=== PATIENT | female | born 1985 | race Caucasian/White ===

== ENCOUNTER 2022-10-20 13:31 | Emergency (ER) | payer BC, SELFPAY ==
[2022-10-20 13:42] VITALS: BP 123/78; PULSE 89; RESP 20; TEMP 36.8; O2SAT 97; BMI 31.0
[2022-10-20 14:34] LABS: PCR FLU A Negative PCR FLU A (Negative); PCR FLU B Negative PCR FLU B (Negative); PCR RSV Negative PCR RSV (Negative)
[2022-10-20 14:37] LABS: SARS PCR* Negative SARS-CoV-2 (Negative)
--- NOTE | 2022-10-20 15:03 | ED.GENADULT ---
HPI - General Adult General Chief complaint: Cough Stated complaint: Cough Time Seen by Provider: 10/20/22 14:45 Source: patient Mode of arrival: ambulatory Limitations: no limitations History of Present Illness HPI narrative: 37-year-old female presents to the ED with a 2 week history of cough. Twenty-five year smoker with no history of documented COPD or asthma. No fevers. Has been exposed to COVID through family members, though not household contacts. Has not tried any [id number] medications, cough suppressants, inhalers or other similar interventions. Cough is productive of clear sputum, no purulent mucus, no hemoptysis. No fever. No prior history of similar symptoms. Thinks she probably has bronchitis. No severe dyspnea or chest pain. No significant worsening, this was just a convenient time for her to come in for Care on Friday afternoon to the ED. Past medical history she states is benign, no major long-term health problems besides occasional irregular heartbeat, she is not on long-term medication for that. Her only long-term medication is her Mirena IUD. She denies allergies. Socially, she continues to smoke but was receptive to discussion on cessation at my recommendation. ROS is notable for the respiratory symptoms as above only, otherwise denies times 12 systems. Related Data Home Medications Medication Instructions Recorded Confirmed levonorgestrel 21 mcg/24 hours (8 1 device intrauterine ONCE 09/25/22 09/25/22 yrs) 52 mg intrauterine device Previous Rx's Medication Instructions Recorded albuterol sulfate 90 mcg/actuation 2 puff inhalation Q4-6H PRN 10/20/22 aerosol inhaler shortness of breath or wheezing #6.7 grams doxycycline hyclate 100 mg capsule 100 mg PO BID #14 caps 10/20/22 prednisone 20 mg tablet 20 mg PO DAILY #4 tabs 10/20/22 Allergies Allergy/AdvReac Type Severity Reaction Status Date / Time silver nitrate Allergy Mild skin Verified 09/25/22 10:59 irritation [facility] Medical History History of hysterosalpingogram (2012) History of placental abruption (2013) Multigravida of advanced maternal age Perineal laceration involving labia care following vaginal delivery Ventricular premature beats (2018) White classification A2 gestational diabetes mellitus (GDM) Social History Narrative: marital conflict Smoking Status: Current every day smoker (20) Exam Const: Vital Signs, click to edit/add: Vital Signs - 24 hr 10/20/22 13:42 Temperature 98.3 F Pulse Rate [Pulse Oximeter] 89 Respiratory Rate 20 Blood Pressure [Ri ght Upper Arm] 123/78 Pulse Oximetry 97 Oxygen Delivery Me thod Room Air Documenting provider has reviewed patient's vital signs: yes Common normals: no apparent distress General appearance: cooperative and well kempt HENMT: Common normals: normocephalic Head and scalp: normocephalic Mouth: oral and palatal mucosa normal Throat: posterior oropharynx normal Eye: Common normals: conjunctivae normal General eye: normal appearance of both eyes Conjunctiva: conjunctiva(e) normal Neck & C-Spine: Common normals: full ROM and no lymphadenopathy Resp: Common normals: normal respiratory effort and no use of accessory muscles Effort & inspection: able to speak in complete sentences Other: Course bronchial breath sounds with mild bilateral expiratory wheeze in all mccormack. No crackles. Cardio: Common normals: regular rate, regular rhythm, S1 normal heart sound, S2 normal heart sound, no murmurs and peripheral pulses 2+ throughout Rate: regular rate Rhythm: regular rhythm Heart sounds: S1 normal and S2 normal Peripheral pulses: pulses 2+ throughout Extremity: Common normals: normal capillary refill and no pedal edema Psych: Appearance: well kempt Activity/motor behavior: appropriate eye contact Mood and affect: euthymic mood Insight: insight good Judgement: judgment good Skin: Common normals: no rashes or lesions noted General skin exam: no rashes or lesions noted Course Vital Signs Vital signs: Initial Vital Signs Temperature 98.3 F 10/20/22 13:42 Temperature Source Oral 10/20/22 13:42 Pulse Rate 89 10/20/22 13:42 Pulse Rhythm 10/20/22 13:42 Respiratory Rate 20 10/20/22 13:42 Blood Pressure 123/78 10/20/22 13:42 Blood Pressure Mean 93 10/20/22 13:42 Blood Pressure Position Sitting 10/20/22 13:42 Pulse Oximetry 97 10/20/22 13:42 Oxygen Delivery Method 10/20/22 13:42 Vital Signs Temperature 98.3 F 10/20/22 13:42 Pulse Rate 89 10/20/22 13:42 Respiratory Rate 20 10/20/22 13:42 Blood Pressure 123/78 10/20/22 13:42 Pulse Oximetry 97 10/20/22 13:42 Oxygen Delivery Method 10/20/22 13:42 Temperature 98.3 F 10/20/22 13:42 Pulse Rate 89 10/20/22 13:42 Respiratory Rate 20 10/20/22 13:42 Blood Pressure 123/78 10/20/22 13:42 Pulse Oximetry 97 10/20/22 13:42 Oxygen Delivery Method 10/20/22 13:42 Medical Decision Making MDM Narrative Medical decision making narrative: Swabs reviewed, negative. No hypoxia, tachycardia or tachypnea. Chest x-ray not recommended. Exam consistent with bronchitis, in the setting of 625 year smoking history, likely has underlying COPD, treatment recommended. Prednisone 20 mg p.o. x1, doxycycline 100 mg p.o. x1. Discussed follow-up care, smoking cessation and typical course of recovery. Counseled that it will take several weeks for her lungs recover from this episode even with treatment. Alarm symptoms reviewed. All questions answered. Lab Data Lab results reviewed: Yes I reviewed the patient's lab results Labs: Lab Results 10/20/22 Range/Units 13:45 SARS-CoV-2 (PCR) Negative SARS-CoV-2 (Negative) Influenza Type A (PCR) Negative PCR FLU A (Negative) Influenza Type B (PCR) Negative PCR FLU B (Negative) RSV (PCR) Negative PCR RSV (Negative) Discharge Plan Discharge Clinical Impression: COPD exacerbation, Bronchitis Patient Disposition: Home, Self-Care Condition: Stable Instructions: COPD (Chronic Obstructive Pulmonary Disease) (DC) Additional Instructions: As we discussed, your swabs are negative for COVID, influenza and RSV. The reason that your bronchitis is not getting better is because your lungs are damaged from 25 years of smoking. This would be a great time to quit smoking. I do not think that your lungs will heal from this episode without medications. Typically, if you have not started to improve after 2 weeks of illness, as a smoker, you may need more aggressive treatment. I prescribed doxycycline and prednisone. The doxycycline is or antibiotic. He will take this 2 times a day for the next 7 days. Your already received your dose this afternoon. Your next dose will be early tomorrow morning. The prednisone will be taken once daily in the morning, you have already received today's dose as well. Your next dose will be early tomorrow morning. I have prescribed him albuterol, you may use this as needed for shortness of breath and cough fits. I also do recommend that you use it before bedtime. It will take about 4-6 weeks for your lungs to heal completely. Though you should be about half better at the end of the antibiotics. Follow up with her primary care doctor if not improving in 5 days or to discuss smoking cessation if you request assistance. Any severe worsening would warrant ED presentation. Activity Level: No Restrictions Discharge Diet: Regular Prescriptions: New prednisone 20 mg tablet 20 mg PO DAILY Qty: 4 0RF doxycycline hyclate 100 mg capsule 100 mg PO BID Qty: 14 0RF albuterol sulfate 90 mcg/actuation HFA aerosol inhaler 2 puff inhalation Q4-6H PRN (Reason: shortness of breath or wheezing) Qty: 6.7 1RF No Action levonorgestrel 20 mcg/24 hours (8 yrs) 52 mg intrauterine device 1 device intrauterine ONCE Follow Up/Referrals: Adriane Casanova MD [Primary Care Provider] - Stand Alone Forms: Confabb Info Instructions
[2022-10-20] MEDS: DOXYCYCLINE HYCLATE 100 MG CAPSULE PO (15:17)
[2022-10-20] MEDS: predniSONE 10 MG TABLET 20 MG PO (15:18)
== END 2022-10-20 15:31 | disposition home or self-care (01) ==
PROVIDERS: Emergency Provider Family Medicine; PCP Internal Medicine
DX: J44.1 Chronic obstructive pulmonary disease with (acute) exacerbation (principal); J40 Bronchitis, not specified as acute or chronic; F17.200 Nicotine dependence, unspecified, uncomplicated
CPT/HCPCS: 87502; 87634; 87635; 99283; 99284; A9270; J7512